=== PATIENT | female | born 1980 | race African-American/Black ===

== ENCOUNTER 2022-01-24 02:28 | Emergency (ER) | payer MEDICAID ==
[~2022-01-24] VITALS: Ht 170.2 cm; Wt 70.0 kg
[2022-01-24 02:34] VITALS: BP 149/78
[2022-01-24 04:08] LABS: CLARITY URINE CLOUDY (CLEAR); COLOR URINE YELLOW (YELLOW); KETONES URINE TRACE (NEGATIVE); LEUKOCYTE ESTERASE URINE 1+ (NEGATIVE); NITRITE URINE POSITIVE (NEGATIVE); OCCULT BLOOD URINE TRACE (NEGATIVE); PH URINE 5.5 (4.5-8.0); PROTEIN URINE 1+ (NEGATIVE); SPECIFIC GRAVITY URINE 1.026 (1.005-1.030); UROBILINOGEN URINE 0.2 E.U./dL (0.2-1.0)
[2022-01-24] MEDS ORDERED: NITR100C MT (04:26)
[2022-01-24] MEDS ORDERED: PHEN-815 MT (04:26)
== END 2022-01-24 04:30 | disposition home or self-care (01) ==
LOC: ER 02:28
DX: N39.0 Urinary tract infection, site not specified (principal)
CPT/HCPCS: 81003; 81025; 99283

== ENCOUNTER 2022-10-13 23:12 | Emergency (ER) | payer MEDICAID ==
[~2022-10-13] VITALS: Ht 172.7 cm; Wt 91.0 kg
[~2022-10-13 23:12] MED LIST: NITR100C MT; PHEN-815 MT
[2022-10-14 00:19] VITALS: BP 134/83
== END 2022-10-14 06:08 | disposition left against medical advice (07) ==
LOC: ER 23:12
DX: Z53.21 Procedure and treatment not carried out due to patient leaving prior to being seen by health care provider (principal)

== ENCOUNTER 2023-05-31 21:25 | Emergency (ER) | payer MEDICAID ==
[~2023-05-31] VITALS: Ht 172.7 cm; Wt 94.6 kg
[2023-05-31 21:59] VITALS: BP 157/89; PULSE 104; RESP 18; TEMP 98.8; O2SAT 100
== END 2023-06-01 01:00 | disposition left against medical advice (07) ==
LOC: ER 21:25
DX: Z53.21 Procedure and treatment not carried out due to patient leaving prior to being seen by health care provider (principal)
CPT/HCPCS: 99281

== ENCOUNTER 2024-09-10 03:17 | Emergency (ER) | payer MEDICAID ==
[~2024-09-10] VITALS: Ht 165.1 cm; Wt 91.0 kg
[2024-09-10 03:54] VITALS: O2SAT 100
[2024-09-10] MEDS: KETOROLAC 15MG/ML VIAL IM ONE (04:24)
[2024-09-10 04:40] LABS: BASOPHILS % 0.6 % (0.0-2.0); EOSINOPHILS % 1.6 % (0.0-5.0); HEMATOCRIT. 35.5 % (36.0-48.0); HEMOGLOBIN. 11.7 g/dL (12.0-16.0); LYMPHOCYTES % 32.5 % (20.0-50.0); MEAN CORPUSCULAR HGB CONC 32.9 g/dL (31.0-37.0); MEAN CORPUSCULAR VOLUME 85.2 fL (81.0-99.0); MEAN PLATELET VOLUME 7.9 fl (7.4-10.4); MONOCYTES % 6.6 % (2.0-8.0); NEUTROPHILS % 58.7 % (40.0-76.0); PLATELET 398 x1000/uL (130-400); RED BLOOD CELL COUNT 4.17 mill/uL (4.2-5.4); RED CELL DISTRIBUTION WIDTH 14.8 % (11.6-14.6)
[2024-09-10 04:46] LABS: CHLORIDE 106 mEq/L (98-107); POTASSIUM 3.7 mEq/L (3.5-5.1); SODIUM 139 mEq/L (136-145)
[2024-09-10 04:47] LABS: CARBON DIOXIDE 25 mEq/L (21-32)
[2024-09-10 04:48] LABS: CALCIUM 9.4 mg/dL (8.7-10.4)
[2024-09-10 04:53] LABS: CREATININE 0.7 mg/dL (0.6-1.0); GLUCOSE 99 mg/dL (70-105); UREA NITROGEN BLOOD 11 mg/dL (9-23)
[2024-09-10] MEDS ORDERED: CEPH500C2 MT (04:58)
[2024-09-10 05:17] VITALS: BP 167/99; PULSE 104; RESP 17; TEMP 36.44736; O2SAT 100
[2024-09-10 05:21] LABS: HCG SCREEN NEGATIVE
== END 2024-09-10 05:20 | disposition home or self-care (01) ==
LOC: ER 03:17
DX: L03.115 Cellulitis of right lower limb (principal)
CPT/HCPCS: 80048; 84703; 85025; 36415; 96372; 99283; J1885; Z7610